=== PATIENT | male | born 1955 ===

== ENCOUNTER 2021-01-15 11:24 | Outpatient (REF) | payer MEDICARE, BC, SELFPAY ==
[2021-01-17 16:19] LABS: COVID-19 RT-PCR UVMMC Result Negative (Negative)
== END 2021-01-15 11:25 | disposition home or self-care (01) ==
LOC: NCHCN 11:24
PROVIDERS: Visit Provider Internal Medicine
DX: Z20.822 Contact with and (suspected) exposure to COVID-19 (principal); R05 Cough; J02.9 Acute pharyngitis, unspecified
CPT/HCPCS: U0003